=== PATIENT | female | born 1945 | race Caucasian/White ===

== ENCOUNTER 2023-02-03 16:14 | Inpatient (IN) | payer MEDICARE, OTHER, SELFPAY ==
[2023-02-03] VITALS (18 sets, daily range): BP systolic 112–173; BP diastolic 56–76; PULSE 77–88; RESP 15–27; TEMP 37.5–38.1; O2SAT 96–100; BMI 23.3; BMI 23.7
[2023-02-03] MEDS: SODIUM CHLORIDE 0.9% 1,000 ML 1000 ML IV (16:50)
--- NOTE | 2023-02-03 16:50 | DI.RAD.S_ITS ---
PROCEDURE: XR CHEST 1V INDICATIONS: suspected sepsis TECHNIQUE: One view of the chest was acquired. COMPARISON: None. FINDINGS: Surgical changes and devices: None. Lungs and pleura: Lungs are clear. No pleural effusions or pneumothorax. Mediastinum: Mediastinal contours appear normal. Heart size is normal. Bones and chest wall: No suspicious bony lesions. Overlying soft tissues appear unremarkable. IMPRESSION: No acute cardiopulmonary abnormalities or focal airspace disease. Dictated by: Esteban Burgos M.D. on 02/03/2023 at 17:57 Approved by: Esteban Burgos M.D. on 02/03/2023 at 17:59
[2023-02-03 16:56] LABS: Add Manual Diff / Slide Review NO; Basophils Absolute Auto 0 /uL (0-100); Basophils Percent Auto 0.4 % (0-2); Eosinophils Absolute Auto 100 /uL (0-450); Eosinophils Percent Auto 0.5 % (2-4); Hematocrit 37.3 % (36-46); Hemoglobin 13.3 g/dL (12.0-16.0); Lymphocytes Absolute Auto 1300 /uL (1100-4500); Mean Corpuscular HGB Conc 35.6 % (30-36); Monocytes Absolute Auto 1000 /uL (0-900); Monocytes Percent Auto 9.3 % (3-14); Neutrophils Absolute Auto 8500 /uL (1500-7000); Neutrophils Percent Auto 77.8 % (50-75); Platelet Count 172 X10^3/uL (150-400); Red Blood Cell Count 4.28 X10^6/uL (4.0-5.2); Red Cell Distribution Width 12.9 % (11.6-14.8)
[2023-02-03 17:01] LABS: Prothrombin Time 11.5 SECONDS (10.1-12.7)
[2023-02-03 17:03] LABS: PTT Partial Thromboplastin Tim 27 SECONDS (26-36)
[2023-02-03 17:11] LABS: Lactate (Lactic Acid) 1.2 mmol/L (0.7-2.1)
[2023-02-03 17:12] LABS: Alanine Aminotransferase 52 IU/L (<35); Albumin 3.8 g/dL (3.5-5.0); Albumin Globulin Ratio 1.2 (1.0-2.8); Alkaline Phosphatase 111 U/L (38-126); Aspartate Aminotransferase 56 IU/L (14-36); BUN Creatinine Ratio 24.6 (6-22); Blood Urea Nitrogen 17 mg/dL (7-17); Calcium 8.6 mg/dL (8.4-10.2); Carbon Dioxide 29 mmol/L (22-32); Chloride 100 mmol/L (98-107); Estimated Glomerular Filt Rate > 60 mL/min (>60); Globulin 3.2 g/dL (1.7-4.1); Glucose 119 mg/dL (80-110); HEMOLYSIS < 15 (0-50); Lipase 79 U/L (23-300); Potassium 3.9 mmol/L (3.4-5.1); Sodium 133 mmol/L (137-145)
[2023-02-03 17:29] LABS: Procalcitonin 0.68 ng/mL (<0.5)
[2023-02-03] MEDS: ACETAMINOPHEN 325 MG TABLET 975 MG PO (17:41)
--- NOTE | 2023-02-03 18:21 | DI.US.S_ITS ---
PROCEDURE: US PERIPH VENOUS LOW EXTREM LT INDICATIONS: PAIN REDNESS WARMTH NO INJURY TECHNIQUE: Real-time imaging, as well as color and pulse Doppler interrogation, were performed of the lower extremity deep veins from the inguinal ligament to the popliteal fossa, with documentation of the visualized calf veins. COMPARISON: None. FINDINGS: The common femoral, femoral, popliteal, and the visualized calf veins are normally compressible, and free of intraluminal thrombus. Color and pulse Doppler demonstrate normal phasic intraluminal flow. There is normal augmentation response to distal compression maneuver. A prominent left groin lymph node can be seen. Left calf soft tissue edema can be seen. IMPRESSION: No findings of lower extremity deep venous thrombosis. Dictated by: Reed Montoya M.D. on 02/03/2023 at 17:59 Approved by: Reed Montoya M.D. on 02/03/2023 at 17:59
--- NOTE | 2023-02-03 18:22 | ED_ITS ---
HPI - Extremity Problem General Chief complaint: Extremity Problem,Nontraumatic Stated complaint: DVT/Cellulitis Time Seen by Provider: 02/03/23 17:36 Source: patient and EMS Mode of arrival: EMS History of Present Illness HPI Narrative: 77-year-old female former smoker with no significant chronic medical history presents by air medical transport for evaluation of fever, shaking chills as well as a painful, red and swollen left lower extremity. She states that she had been in her normal state of health until Friday when she started feeling a bit under the weather and feverish. Over the course of the weekend she began to feel increasingly weak and noticed increasing pain and redness on her left lower leg which is extended up along her left medial thigh. She is had fever and shaking chills and some mild nausea. She denies runny nose, sore throat or cough. She denies any trauma or injury. No chest pain, no history of clot. Related Data Home Medications Medication Instructions Recorded Confirmed estradiol 10 mcg vaginal tablet 10 mcg vaginal 2XW 02/03/23 02/03/23 levothyroxine 50 mcg tablet 50 mcg PO DAILY 02/03/23 02/03/23 (Synthroid) Allergies Allergy/AdvReac Type Severity Reaction Status Date / Time amoxicillin Allergy Verified 02/03/23 22:51 Sulfa (Sulfonamide Allergy Verified 02/03/23 22:51 Antibiotics) Review of Systems Review of Systems Narrative: GENERAL: See HPI HEENT: Denies sinus pain, ear pain, sore throat, difficulty swallowing, dizziness. RESPIRATORY: Denies dyspnea, cough, wheezing, hemoptysis, sputum. CARDIOVASCULAR: Denies chest pain, palpitations, orthopnea, edema, GASTROINTESTINAL: Denies nausea, vomiting, abdominal pain, diarrhea, constipation, melena. : Denies dysuria, frequency, incontinence, hematuria, urinary retention. MUSCULOSKELETAL: See HPI SKIN: See HPI NEUROLOGIC: Denies weakness, headache, numbness, change in speech, confusion, seizures, incoordination. PSYCHIATRIC: No concerning psychosocial issues. 12 point review of systems is negative except for those stated above Patient History Medical History (Updated 02/04/23 @ 03:49 by Jose Parisi MD) Hypothyroidism Social History household members: spouse Smoking Status: Former smoker Smoking Status: Former smoker alcohol intake frequency: a few times a week Alcohol type: wine Substance Use Type: does not use Exam Narrative Exam Narrative: GENERAL: [77] year old patient appears stated age. Well-developed patient, in mild distress. HEAD: Atraumatic. Normocephalic. EYES: Pupils equal round and reactive. Extraocular motions intact. No scleral icterus. No injection or drainage. ENT: Nose without bleeding, purulent drainage. Throat without erythema, tonsillar hypertrophy or exudate. Airway patent. NECK: Trachea midline. Non tender CARDIOVASCULAR: Regular rate and rhythm without murmurs, gallops, or rubs. RESPIRATORY: Clear to auscultation. Breath sounds equal bilaterally. No wheezes, rales, or rhonchi. GASTROINTESTINAL: Abdomen soft, non-tender, nondistended. EXTREMITIES: No edema or joint tenderness. BACK: Nontender without deformity or crepitance. No flank tenderness. NEURO: AOx3. SKIN: Painful warm blanching rash, dark purple on left lower extremity, mainly on the anterior carrizales but spreads up along medial thigh. Patient also has pain on palpation of calf there is [id number] swelling, pulses intact Initial Vital Signs Initial Vital Signs: Vital Signs Temperature 100.6 F H 02/03/23 16:15 Pulse Rate 81 02/03/23 16:15 Respiratory Rate 18 02/03/23 16:15 Blood Pressure 173/76 H 02/03/23 16:15 Pulse Oximetry 100 02/03/23 16:15 Oxygen Delivery Method Room Air 02/03/23 16:15 Course Orders Ordered: Acetaminophen (Acetaminophen 325 Mg Tablet) 650 mg PO Q6H PRN PRN Reason: Fever/Mild Pain (1-3) Last Admin: 02/04/23 00:29 Dose: 650 mg Documented By: KALI Hydrocodone Bitart/Acetaminophen (Hydrocodone/Acet 5/325 Tablet) 1 tab PO Q4H PRN PRN Reason: Pain, Moderate (4-6) Al Hydrox/Mg Hydrox/Simethicone (Mag Hydrox/Alum/Simeth 30 Ml Udc) 30 ml PO Q6HR PRN PRN Reason: Dyspepsia Enoxaparin Sodium (Enoxaparin 40 Mg/0.4 Ml Syringe) 40 mg SUBCUT DAILY ROBERT Lactated Ringer's (Lactated Ringers) 1,000 mls @ 100 mls/hr IV CONT ROBERT Last Admin: 02/03/23 21:45 Dose: 100 mls/hr Documented By: KALI Vancomycin HCl (Vancomycin) 1,000 mg in 200 mls @ 200 mls/hr IV Q24H ROBERT Ibuprofen (Ibuprofen 600 Mg Tablet) 600 mg PO Q6H PRN PRN Reason: Fever/Mild Pain (1-3) Naloxone HCl (Naloxone 0.4 Mg/Ml Vial) 0.2 mg IV Q2MIN PRN PRN Reason: Opiate Reversal Ondansetron HCl (Ondansetron 4 Mg/2 Ml Inj) 4 mg IV NOW PRN PRN Reason: Nausea And Vomiting Ondansetron HCl (Ondansetron 4 Mg Odt) 4 mg SL NOW PRN PRN Reason: Nausea And Vomiting Ondansetron HCl (Ondansetron 4 Mg Odt) 4 mg PO Q8HR PRN PRN Reason: Nausea And Vomiting Ondansetron HCl (Ondansetron 4 Mg/2 Ml Inj) 4 mg IV Q8HR PRN PRN Reason: Nausea And Vomiting Last Admin: 02/04/23 03:09 Dose: 4 mg Documented By: KALI Oxycodone HCl (Oxycodone Ir 10 Mg Tablet) 5 mg PO Q3H PRN PRN Reason: Pain, Severe (7-10) Vancomycin HCl (Vancomycin Per Pharmacy) 1 request MISC NOW ONE Stop: 02/03/23 21:43 Discontinued Medications Acetaminophen (Acetaminophen 325 Mg Tablet) 975 mg PO NOW ONE Stop: 02/03/23 17:37 Last Admin: 02/03/23 17:41 Dose: 975 mg Documented By: ALVARO Sodium Chloride (Normal Saline 0.9%) 1,000 mls @ 1,000 mls/hr IV BOLUS ONE Stop: 02/03/23 17:49 Last Infusion: 02/03/23 19:06 Dose: 0 mls/hr Documented By: Admin: 02/03/23 16:50 Dose: 1,000 mls/hr Documented By: ALVARO Lactated Ringer's (Lactated Ringers) 2,000.34 mls @ 666.78 mls/hr 30 ml/kg infuse over 3 hr (2000.34 ml) IV NOW ONE Stop: 02/03/23 21:11 Last Admin: 02/03/23 19:35 Dose: 666.78 mls/hr Documented By: GC Vancomycin HCl/Dextrose (Vancomycin) 1,500 mg in 300 mls @ 200 mls/hr IV NOW ONE Stop: 02/03/23 19:50 Last Infusion: 02/03/23 20:42 Dose: 0 mls/hr Documented By: Admin: 02/03/23 19:12 Dose: 200 mls/hr Documented By: GC Ketorolac Tromethamine (Ketorolac 30 Mg/Ml Vial) 15 mg IV NOW ONE Stop: 02/03/23 18:22 Last Admin: 02/03/23 19:18 Dose: 15 mg Documented By: WILFREDO Vital Signs Vital signs: Vital Signs - 8 hr 02/03/23 21:00 02/03/23 21:00 Pulse Rate 78 Respiratory Rate 16 Blood Pressure 120/59 L Pulse Oximetry 96 MDM - Extremity (Nontraumatic) Lab Data 02/03/23 16:30 02/03/23 16:30 Labs: Lab Results 02/03/23 02/03/23 02/03/23 Range/Units 16:30 16:30 16:30 WBC 11.0 (4.5-11.0) X10^3/uL RBC 4.28 (4.0-5.2) X10^6/uL Hgb 13.3 (12.0-16.0) g/dL Hct 37.3 (36-46) % MCV 87.0 (80-100) fL MCH 31.0 (26-34) PG MCHC 35.6 (30-36) % RDW 12.9 (11.6-14.8) % Plt Count 172 (150-400) X10^3/uL Neut % (Auto) 77.8 H (50-75) % Lymph % (Auto) 12.0 L (25-40) % [place] % (Auto) 9.3 (3-14) % Eos % (Auto) 0.5 L (2-4) % Baso % (Auto) 0.4 (0-2) % Neut # (Auto) 8500 H (3656-8055) /uL Lymph # (Auto) 1300 (2799-9321) /uL [place] # (Auto) 1000 H (0-900) /uL Eos # (Auto) 100 (0-450) /uL Baso # (Auto) 0 (0-100) /uL PT 11.5 (10.1-12.7) SECONDS INR 1.0 (0.9-1.3) APTT 27 (26-36) SECONDS Sodium 133 L (137-145) mmol/L Potassium 3.9 (3.4-5.1) mmol/L Chloride 100 (98-107) mmol/L Carbon Dioxide 29 (22-32) mmol/L BUN 17 (7-17) mg/dL Creatinine 0.69 (0.52-1.04) mg/dL Estimated GFR > 60 (>60) mL/min BUN/Creatinine Ratio 24.6 H (6-22) Glucose 119 H (80-110) mg/dL Lactate (0.7-2.1) mmol/L Calcium 8.6 (8.4-10.2) mg/dL Total Bilirubin 1.0 (0.2-1.3) mg/dL AST 56 H (14-36) IU/L ALT 52 H (<35) IU/L Alkaline Phosphatase 111 (38-126) U/L Total Protein 7.0 (6.3-8.2) g/dL Albumin 3.8 (3.5-5.0) g/dL Globulin 3.2 (1.7-4.1) g/dL Albumin/Globulin Ratio 1.2 (1.0-2.8) Lipase 79 (23-300) U/L Procalcitonin 0.68 H (<0.5) ng/mL Urine RBC (0-5/HPF) Urine WBC (0-5/HPF) Ur Squamous Epith Cells (0-5/HPF) Amorphous Sediment Urine Bacteria (None) 02/03/23 02/03/23 Range/Units 16:30 18:35 WBC (4.5-11.0) X10^3/uL RBC (4.0-5.2) X10^6/uL Hgb (12.0-16.0) g/dL Hct (36-46) % MCV (80-100) fL MCH (26-34) PG MCHC (30-36) % RDW (11.6-14.8) % Plt Count (150-400) X10^3/uL Neut % (Auto) (50-75) % Lymph % (Auto) (25-40) % [place] % (Auto) (3-14) % Eos % (Auto) (2-4) % Baso % (Auto) (0-2) % Neut # (Auto) (7439-8267) /uL Lymph # (Auto) (2260-2960) /uL [place] # (Auto) (0-900) /uL Eos # (Auto) (0-450) /uL Baso # (Auto) (0-100) /uL PT (10.1-12.7) SECONDS INR (0.9-1.3) APTT (26-36) SECONDS Sodium (137-145) mmol/L Potassium (3.4-5.1) mmol/L Chloride (98-107) mmol/L Carbon Dioxide (22-32) mmol/L BUN (7-17) mg/dL Creatinine (0.52-1.04) mg/dL Estimated GFR (>60) mL/min BUN/Creatinine Ratio (6-22) Glucose (80-110) mg/dL Lactate 1.2 (0.7-2.1) mmol/L Calcium (8.4-10.2) mg/dL Total Bilirubin (0.2-1.3) mg/dL AST (14-36) IU/L ALT (<35) IU/L Alkaline Phosphatase (38-126) U/L Total Protein (6.3-8.2) g/dL Albumin (3.5-5.0) g/dL Globulin (1.7-4.1) g/dL Albumin/Globulin Ratio (1.0-2.8) Lipase (23-300) U/L Procalcitonin (<0.5) ng/mL Urine RBC 0-1/hpf (0-5/HPF) Urine WBC 1-5/hpf (0-5/HPF) Ur Squamous Epith Cells 0-1 /hpf (0-5/HPF) Amorphous Sediment 3+ Urine Bacteria Few (2-10) H (None) Urine Dip Bedside Urine Glucose Negative Bedside Urine Bilirubin - Negative Bedside Urine Ketone - Negative Urine Specific [place] 1.015 Bedside Urine Occult Blood - Negative Bedside Urine pH 6.5 Bedside Urine Protein +/- 15 Bedside Urine Urobilinogen - Negative Bedside Urine Nitrite - Negative Bedside Urine Leukocytes - Negative Esterase MDM Narrative Medical decision making narrative: 77-year-old female with rapidly worsening left lower extremity pain, redness and swelling initially just on her carrizales and now although up to her mid thigh. She is had fever and shaking chills, on arrival met all sepsis markers, given IV fluids vancomycin and antipyretics. Ultrasound obtained to rule out DVT. Patient requires hospitalization for further treatment and stabilization of her condition. Discussed with on-call hospitalist (Dr. Anderson). He is happy to accept on his service Discharge Plan Departure Patient Disposition: Admitted As Inpatient Clinical Impression: Sepsis Cellulitis Qualifiers: Site of cellulitis: extremity Site of cellulitis of extremity: lower extremity Laterality: left Qualified Code(s): L03.116 - Cellulitis of left lower limb Admit Date/Time: 02/03/23 21:10 Admit Provider: Jose Parisi
[2023-02-03] MEDS: VANCOMYCIN 1,500 MG/300 ML PIGGYBACK 200 MG IV (19:12)
[2023-02-03] MEDS: KETOROLAC 30 MG/ML VIAL 15 MG IV (19:18)
[2023-02-03 19:26] LABS: Amorphous Sediment Urine 3+; Bacteria Urine Few (2-10); RBC Urine 0-1/HPF (0-5/HPF); Squamous Epithelial Cell Urine 0-1 /HPF (0-5/HPF); WBC Urine 1-5/HPF (0-5/HPF)
[2023-02-03] MEDS: LACTATED RINGERS 666.78 ML IV (19:35)
[2023-02-03] MEDS: LACTATED RINGERS 1,000 ML 100 ML IV (21:45)
--- NOTE | 2023-02-03 21:47 | PM.HP.1 ---
History of Present Illness History of Present Illness Date Patient Seen: 02/03/23 Chief complaint: DVT/Cellulitis Narrative: 77 y/o with PMH of hypothyroidism, presented to ED with LLE cellulitis and sepsis. She developed first symptoms on Friday, she was moving some furniture and noticed Lt lower anterior leg redness. On Friday it was getting worse and on presentation to ED erythema extended up and down, with chills and fever.She could.ve injure the leg, in retrospect, but she denies seeing any skin cuts or wounds. COUNT INCLUDES THE [facility] Medical History (Updated 02/04/23 @ 03:49 by Jose Parisi MD) Hypothyroidism Social History household members: spouse Smoking Status: Former smoker Meds Home Medications and Allergies Home Medications Medication Instructions Recorded Confirmed Type estradiol 10 mcg vaginal tablet 10 mcg vaginal 2XW 02/03/23 02/03/23 History levothyroxine 50 mcg tablet 50 mcg PO DAILY 02/03/23 02/03/23 History (Synthroid) Allergies Allergy/AdvReac Type Severity Reaction Status Date / Time amoxicillin Allergy Verified 02/03/23 22:51 Sulfa (Sulfonamide Allergy Verified 02/03/23 22:51 Antibiotics) Review of Systems Constitutional Comments: fever, chills Cardiovascular Comments: w/o chest pain or palpitations Respiratory Comments: w/o shortness of breath Gastrointestinal Comments: w/o complaints Genitourinary Comments: w/o dysuria Musculoskeletal Comments: LLE swelling, redness, tenderness Exam Vital Signs (past 8 hours): - 02/03/23 16:15 02/03/23 16:56 02/03/23 16:19 Temperature 100.6 F H 100.6 F H Pulse Rate 81 Respiratory Rate 18 Blood Pressure 173/76 H 173/76 H Pulse Oximetry 100 Oxygen Delivery Method Room Air 02/03/23 16:19 02/03/23 16:30 02/03/23 16:30 Temperature Pulse Rate 86 80 Respiratory Rate 22 Blood Pressure 148/67 H Pulse Oximetry 98 100 Oxygen Delivery Method 02/03/23 17:00 02/03/23 17:00 02/03/23 17:30 Temperature Pulse Rate 78 Respiratory Rate 27 H Blood Pressure 146/65 H 140/65 Pulse Oximetry 99 Oxygen Delivery Method 02/03/23 17:30 02/03/23 17:41 02/03/23 18:00 Temperature 100.6 F H Pulse Rate 88 Respiratory Rate 26 H Blood Pressure 132/60 Pulse Oximetry 97 Oxygen Delivery Method 02/03/23 18:00 02/03/23 19:02 02/03/23 19:07 Temperature 99.8 F H 99.8 F H Pulse Rate 79 Respiratory Rate 21 Blood Pressure Pulse Oximetry 98 Oxygen Delivery Method 02/03/23 19:03 02/03/23 19:04 02/03/23 19:04 Temperature Pulse Rate 81 79 Respiratory Rate 15 Blood Pressure 112/57 L Pulse Oximetry 98 98 Oxygen Delivery Method 02/03/23 19:30 02/03/23 19:30 02/03/23 20:00 Temperature Pulse Rate 78 Respiratory Rate 17 Blood Pressure 114/56 L 114/57 L Pulse Oximetry 97 Oxygen Delivery Method 02/03/23 20:00 02/03/23 20:30 02/03/23 20:30 Temperature Pulse Rate 78 77 Respiratory Rate 16 20 Blood Pressure 117/56 L Pulse Oximetry 97 97 Oxygen Delivery Method 02/03/23 21:00 02/03/23 21:00 02/03/23 21:33 Temperature 99.5 F Pulse Rate 78 Respiratory Rate 16 Blood Pressure 120/59 L Pulse Oximetry 96 Oxygen Delivery Method Oxygen Delivery Method Room Air Const Other: in no distress, laying in bed Resp Other: normal respiratory effort Cardio Other: RRR Skin Other: no rashes Neuro Other: w/o deficits Extrem Other: swollen and eryhthematous LLE Psych Other: appropriate mood Objective Labs 02/03/23 16:30 02/03/23 16:30 Labs: Laboratory Results - last 24 hr 02/03/23 02/03/23 02/03/23 16:30 16:30 16:30 WBC 11.0 RBC 4.28 Hgb 13.3 Hct 37.3 MCV 87.0 MCH 31.0 MCHC 35.6 RDW 12.9 Plt Count 172 Neut % (Auto) 77.8 H Lymph % (Auto) 12.0 L [place] % (Auto) 9.3 Eos % (Auto) 0.5 L Baso % (Auto) 0.4 Neut # (Auto) 8500 H Lymph # (Auto) 1300 [place] # (Auto) 1000 H Eos # (Auto) 100 Baso # (Auto) 0 PT 11.5 INR 1.0 APTT 27 Sodium 133 L Potassium 3.9 Chloride 100 Carbon Dioxide 29 BUN 17 Creatinine 0.69 Estimated GFR > 60 BUN/Creatinine Ratio 24.6 H Glucose 119 H Lactate Calcium 8.6 Total Bilirubin 1.0 AST 56 H ALT 52 H Alkaline Phosphatase 111 Total Protein 7.0 Albumin 3.8 Globulin 3.2 Albumin/Globulin Ratio 1.2 Lipase 79 Procalcitonin 0.68 H Urine RBC Urine WBC Ur Squamous Epith Cells Amorphous Sediment Urine Bacteria 02/03/23 02/03/23 16:30 18:35 WBC RBC Hgb Hct MCV MCH MCHC RDW Plt Count Neut % (Auto) Lymph % (Auto) [place] % (Auto) Eos % (Auto) Baso % (Auto) Neut # (Auto) Lymph # (Auto) [place] # (Auto) Eos # (Auto) Baso # (Auto) PT INR APTT Sodium Potassium Chloride Carbon Dioxide BUN Creatinine Estimated GFR BUN/Creatinine Ratio Glucose Lactate 1.2 Calcium Total Bilirubin AST ALT Alkaline Phosphatase Total Protein Albumin Globulin Albumin/Globulin Ratio Lipase Procalcitonin Urine RBC 0-1/hpf Urine WBC 1-5/hpf Ur Squamous Epith Cells 0-1 /hpf Amorphous Sediment 3+ Urine Bacteria Few (2-10) H Assessment & Plan Assessment and plan (1) Cellulitis of left lower extremity: Status: Acute (2) Sepsis: Status: Acute (3) Hypothyroidism: Status: Acute (4) AMANDA (acute kidney injury): Status: Acute Plan admitted for IVFs and iv abx Assessment & Plan narrative: 1. LLE Acute Cellulitis / Sepsis / AMANDA - cultures pending - empiric Vancomycin, IVFs, pain management 2. Hypothyroidism - levothyroxine DVT prophylaxis - Lovenox
[2023-02-04] VITALS (11 sets, daily range): BP systolic 98–119; BP diastolic 36–47; PULSE 61–80; RESP 15–18; TEMP 36.2–39.2; O2SAT 98–100
[2023-02-04] MEDS: ACETAMINOPHEN 325 MG TABLET 650 MG PO ×2 (00:29→16:17)
[2023-02-04] MEDS: ONDANSETRON 4 MG/2 ML INJ IV ×2 (03:09→07:56)
[2023-02-04] MEDS: LEVOTHYROXINE 50 MCG TABLET PO (05:52)
[2023-02-04 07:27] LABS: Add Manual Diff / Slide Review NO; Basophils Absolute Auto 0 /uL (0-100); Basophils Percent Auto 0.3 % (0-2); Eosinophils Absolute Auto 0 /uL (0-450); Eosinophils Percent Auto 0.4 % (2-4); Hematocrit 32.2 % (36-46); Hemoglobin 11.4 g/dL (12.0-16.0); Lymphocytes Absolute Auto 1300 /uL (1100-4500); Lymphocytes Percent Auto 12.2 % (25-40); Mean Corpuscular HGB Conc 35.5 % (30-36); Mean Corpuscular Volume 87.1 fL (80-100); Monocytes Absolute Auto 1100 /uL (0-900); Monocytes Percent Auto 9.7 % (3-14); Neutrophils Absolute Auto 8500 /uL (1500-7000); Neutrophils Percent Auto 77.4 % (50-75); Platelet Count 129 X10^3/uL (150-400); Red Blood Cell Count 3.69 X10^6/uL (4.0-5.2); White Blood Cell Count 11.1 X10^3/uL (4.5-11.0)
[2023-02-04 07:39] LABS: BUN Creatinine Ratio 21.3 (6-22); Blood Urea Nitrogen 13 mg/dL (7-17); Calcium 7.9 mg/dL (8.4-10.2); Carbon Dioxide 24 mmol/L (22-32); Chloride 106 mmol/L (98-107); Estimated Glomerular Filt Rate > 60 mL/min (>60); Glucose 120 mg/dL (80-110); HEMOLYSIS < 15 (0-50); Potassium 3.8 mmol/L (3.4-5.1); Sodium 134 mmol/L (137-145)
[2023-02-04] MEDS: VANCOMYCIN 1,000 MG/200 ML PIGGYBACK 200 MG IV (07:55)
[2023-02-04] MEDS: ENOXAPARIN 40 MG/0.4 ML SYRINGE SUBCUT (08:17)
--- NOTE | 2023-02-04 14:45 | P.PN_ITS ---
Subjective Subjective Interval history: 77 F admitted with cellulitis. Mild improvement today but continues to have swelling, warmth and pain with difficulty ambulating. Exam Vital Signs (past 8 hours): - 02/04/23 07:00 02/04/23 11:00 Temperature 98.9 F 99.4 F Pulse Rate 74 74 Respiratory Rate 15 18 Blood Pressure 98/36 L 119/38 L Pulse Oximetry 100 100 Oxygen Flow Rate 0 0 Oxygen Delivery Method Room Air Oxygen Flow Rate 0 Narrative Exam Narrative: Gen: No acute distress Ext: no edema bilaterally but L leg with erythema warmth and tenderness, slight improvement from area of demarcation. CV: RRR, peripheral pulses +2 (DP) in b/l LE. PULM: no respiratory distress. Objective Labs 02/04/23 07:16 02/04/23 07:16 Labs: Laboratory Results - last 24 hr 02/03/23 02/03/23 02/03/23 16:30 16:30 16:30 WBC 11.0 RBC 4.28 Hgb 13.3 Hct 37.3 MCV 87.0 MCH 31.0 MCHC 35.6 RDW 12.9 Plt Count 172 Neut % (Auto) 77.8 H Lymph % (Auto) 12.0 L [place] % (Auto) 9.3 Eos % (Auto) 0.5 L Baso % (Auto) 0.4 Neut # (Auto) 8500 H Lymph # (Auto) 1300 [place] # (Auto) 1000 H Eos # (Auto) 100 Baso # (Auto) 0 PT 11.5 INR 1.0 APTT 27 Sodium 133 L Potassium 3.9 Chloride 100 Carbon Dioxide 29 BUN 17 Creatinine 0.69 Estimated GFR > 60 BUN/Creatinine Ratio 24.6 H Glucose 119 H Lactate Calcium 8.6 Total Bilirubin 1.0 AST 56 H ALT 52 H Alkaline Phosphatase 111 Total Protein 7.0 Albumin 3.8 Globulin 3.2 Albumin/Globulin Ratio 1.2 Lipase 79 Procalcitonin 0.68 H Urine RBC Urine WBC Ur Squamous Epith Cells Amorphous Sediment Urine Bacteria 02/03/23 02/03/23 02/04/23 16:30 18:35 07:16 WBC 11.1 H RBC 3.69 L Hgb 11.4 L Hct 32.2 L MCV 87.1 MCH 31.0 MCHC 35.5 RDW 13.0 Plt Count 129 L Neut % (Auto) 77.4 H Lymph % (Auto) 12.2 L [place] % (Auto) 9.7 Eos % (Auto) 0.4 L Baso % (Auto) 0.3 Neut # (Auto) 8500 H Lymph # (Auto) 1300 [place] # (Auto) 1100 H Eos # (Auto) 0 Baso # (Auto) 0 PT INR APTT Sodium Potassium Chloride Carbon Dioxide BUN Creatinine Estimated GFR BUN/Creatinine Ratio Glucose Lactate 1.2 Calcium Total Bilirubin AST ALT Alkaline Phosphatase Total Protein Albumin Globulin Albumin/Globulin Ratio Lipase Procalcitonin Urine RBC 0-1/hpf Urine WBC 1-5/hpf Ur Squamous Epith Cells 0-1 /hpf Amorphous Sediment 3+ Urine Bacteria Few (2-10) H 02/04/23 07:16 WBC RBC Hgb Hct MCV MCH MCHC RDW Plt Count Neut % (Auto) Lymph % (Auto) [place] % (Auto) Eos % (Auto) Baso % (Auto) Neut # (Auto) Lymph # (Auto) [place] # (Auto) Eos # (Auto) Baso # (Auto) PT INR APTT Sodium 134 L Potassium 3.8 Chloride 106 Carbon Dioxide 24 BUN 13 Creatinine 0.61 Estimated GFR > 60 BUN/Creatinine Ratio 21.3 Glucose 120 H Lactate Calcium 7.9 L Total Bilirubin AST ALT Alkaline Phosphatase Total Protein Albumin Globulin Albumin/Globulin Ratio Lipase Procalcitonin Urine RBC Urine WBC Ur Squamous Epith Cells Amorphous Sediment Urine Bacteria [facility] Medical History (Updated 02/04/23 @ 12:44 by Jennifer Shafer) Hypothyroidism Social History (System 02/04/23 @ 12:44 by Jennifer Shafer) household members: spouse Smoking Status: Former smoker Assessment & Plan Assessment & Plan narrative: 1. LLE Acute Cellulitis - start ceftriaxone in addition to vanco per pharmacy for now - check MRSA swab, if negative can likely discontinue vanco - pain control - DVT study negative 2. Hypothyroidism - levothyroxine 3. Thrombocytopenia, likely related to infectious process, continue to follow. 4. Hyponatremia, mild - Na 134, continue to follow. Sepsis ruled out, SOFA score 1 for thrombocytopenia. DVT prophylaxis - Lovenox Code: Full, surrogate patient declines to select at this time. Quality VTE Deep Vein Thrombosis/Pulmonary Embolism Present on Admission: No
--- NOTE | 2023-02-04 15:41 | CM.DANOTE ---
Discharge Planning/Care Management CM Discharge Assessment Start: 02/04/23 15:31 Freq: Status: Active Protocol: Document 02/04/23 15:31 CHANG (Rec: 02/04/23 15:41 CHANG [id number]) Discharge Planning Assessment Assigned Hat Marker MAXIMO Dhillon DPOA/Assigned Designee Name Michael Coombs, friend Contact Information [phone] Advance Directives? No History Provided By Patient,Medical Record Prior Living Arrangements House Household Members none Type of transporation used prior to Drives own vehicle admit Independent with ADL's Yes Is patient alert and oriented? 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) with fever, chills and painful , swollen right LE. Patient admitted for management of LLE cellulitis. Met w/patient to introduce self and role. Patient is indp and active at baseline, says she is estranged from her daughter and has listed friend Michael as her NOK. Patient anticipates discharging home w /friend back to [facility] and currently denies needs from this CM team. Patient appreciative for the visit
[2023-02-04] MEDS: cefTRIAXone 1,000 MG in SODIUM CHLORIDE 0.9% 100 ML 200 MG IV (16:05)
[2023-02-04 18:07] LABS: MRSA (Nasal) PCR Not Detected (Not Detect)
[2023-02-05] MEDS: HYDROCODONE/ACET 5/325 TABLET 1 TAB PO (02:15)
[2023-02-05] MEDS: ONDANSETRON 4 MG ODT PO (02:16)
[2023-02-05] MEDS: LEVOTHYROXINE 50 MCG TABLET PO (05:26)
[2023-02-05 05:50] LABS: Add Manual Diff / Slide Review NO; Basophils Absolute Auto 0 /uL (0-100); Basophils Percent Auto 0.3 % (0-2); Eosinophils Absolute Auto 100 /uL (0-450); Eosinophils Percent Auto 1.1 % (2-4); Hematocrit 30.3 % (36-46); Hemoglobin 10.8 g/dL (12.0-16.0); Lymphocytes Absolute Auto 1600 /uL (1100-4500); Lymphocytes Percent Auto 14.9 % (25-40); Mean Corpuscular HGB Conc 35.8 % (30-36); Mean Corpuscular Hemoglobin 31.1 PG (26-34); Mean Corpuscular Volume 86.8 fL (80-100); Monocytes Absolute Auto 1000 /uL (0-900); Monocytes Percent Auto 9.2 % (3-14); Neutrophils Absolute Auto 8100 /uL (1500-7000); Neutrophils Percent Auto 74.5 % (50-75); Platelet Count 120 X10^3/uL (150-400); Red Blood Cell Count 3.49 X10^6/uL (4.0-5.2); Red Cell Distribution Width 12.8 % (11.6-14.8); White Blood Cell Count 10.9 X10^3/uL (4.5-11.0)
[2023-02-05 06:03] LABS: BUN Creatinine Ratio 21.2 (6-22); Blood Urea Nitrogen 14 mg/dL (7-17); Calcium 8.1 mg/dL (8.4-10.2); Carbon Dioxide 26 mmol/L (22-32); Chloride 105 mmol/L (98-107); Estimated Glomerular Filt Rate > 60 mL/min (>60); Glucose 102 mg/dL (80-110); HEMOLYSIS < 15 (0-50); Potassium 3.8 mmol/L (3.4-5.1); Sodium 135 mmol/L (137-145)
[2023-02-05 06:40] VITALS: BP 102/47; PULSE 64; RESP 16; TEMP 36.2; O2SAT 98
[2023-02-05] MEDS: ENOXAPARIN 40 MG/0.4 ML SYRINGE SUBCUT (09:24)
[2023-02-05 09:31] VITALS: BP 125/81; PULSE 64; RESP 10; TEMP 36.4; O2SAT 99
[2023-02-05] MEDS: ACETAMINOPHEN 325 MG TABLET 650 MG PO ×2 (11:48→21:47)
[2023-02-05] MEDS: cefTRIAXone 1,000 MG in SODIUM CHLORIDE 0.9% 100 ML 200 MG IV (14:54)
--- NOTE | 2023-02-05 17:23 | P.PN_ITS ---
Subjective Subjective Interval history: 77-year-old female withHypothyroidism who was admitted with left lower extremity cellulitis and concerns for sepsis. Patient reports she continues to have very significant pain to the left lower extremity. She has had significant difficulty even getting out of the bed to use the bathroom due to pain. She also has significant edema to the left lower extremity compared to the right, which is new for her. she notes on admission there was an area that appeared pink in the left medial thigh, but now notes that has spread and extends from the popliteal area up the medial thigh to the groin. Exam Vital Signs (past 8 hours): - 02/05/23 09:31 Temperature 97.6 F Pulse Rate 64 Respiratory Rate 10 L Blood Pressure 125/81 Pulse Oximetry 99 Oxygen Delivery Method Room Air Oxygen Flow Rate 0 Narrative Exam Narrative: GEN: elderly female, uncomfortable appearing,Alert and oriented x 3 HEENT:NC, Face symmetric CHEST: Respiratory excursions symmetric, CTAB CV: RRR, no M/R/G ABD: Soft, NT/ND, BT present in all 4 quadrants, no organomegaly or masses EXTR: warm, well perfused, no C/C/E noted to the right lower extremity, left lower extremity reveals 2+ edema, nonpitting, the entirety of the leg is very tender to even mild palpation, significant warmth to the pretibial area and calf, as well as up the medial thigh, erythema is patchy in the calf and pretibial area but there is evidence of lymphangitic spread up the medial thigh SKIN: warm and dry, no rash NEURO: Alert and oriented x 3, nonfocal Objective Labs 02/05/23 05:05 02/05/23 05:05 Labs: Laboratory Results - last 24 hr 02/04/23 02/05/23 02/05/23 15:51 05:05 05:05 WBC 10.9 RBC 3.49 L Hgb 10.8 L Hct 30.3 L MCV 86.8 MCH 31.1 MCHC 35.8 RDW 12.8 Plt Count 120 L Neut % (Auto) 74.5 Lymph % (Auto) 14.9 L [place] % (Auto) 9.2 Eos % (Auto) 1.1 L Baso % (Auto) 0.3 Neut # (Auto) 8100 H Lymph # (Auto) 1600 [place] # (Auto) 1000 H Eos # (Auto) 100 Baso # (Auto) 0 Sodium 135 L Potassium 3.8 Chloride 105 Carbon Dioxide 26 BUN 14 Creatinine 0.66 Estimated GFR > 60 BUN/Creatinine Ratio 21.2 Glucose 102 Calcium 8.1 L Magnesium 2.0 Nasal Screen MRSA (PCR) Not detected [facility] Medical History (Updated 02/04/23 @ 12:44 by Jennifer Shafer) Hypothyroidism Social History (System 02/04/23 @ 12:44 by Jennifer Shafer) household members: none Smoking Status: Former smoker Assessment & Plan Assessment & Plan narrative: 1. Left lower extremity cellulitis pain, swelling, and infection are causing difficulties withThe patient accomplishing her ADLs. She is having difficulty even getting out of the bed. MRSA swab was negative. Will discontinue vancomycin. Continue ceftriaxone. Patient will likely need an additional 24-48 hours in the hospital. Patient continued to spike fevers yesterday with a T-max of 102.5?. She has been afebrile today. 2. Leukocytosis white blood cell count was up to 11.1 yesterday It is improved today at 10.9. 3. Normocytic anemia hemoglobin was 13.3 on admission. It is down to 10.8 today. Suspect this is hemodilution. No evidence of bleeding. 4. thrombocytopenia platelet count was normal on admission at 172. It was 129 yesterday and is down again to 120 today. Suspect this is infection related. 5. Hypothyroidism continue levothyroxine 6. Postmenopausal state patient receives vaginal estrogen 2 days weekly. 7. glaucoma continue latanoprost code status full prophylaxis on Lovenox disposition pending Quality VTE Deep Vein Thrombosis/Pulmonary Embolism Present on Admission: No
[2023-02-05 20:20] VITALS: BP 140/61; PULSE 76; RESP 16; TEMP 37.1; O2SAT 98
[2023-02-05] MEDS: IBUPROFEN 600 MG TABLET PO (21:48)
[2023-02-06 05:17] LABS: Add Manual Diff / Slide Review NO; Basophils Absolute Auto 0 /uL (0-100); Basophils Percent Auto 0.5 % (0-2); Eosinophils Absolute Auto 300 /uL (0-450); Eosinophils Percent Auto 2.9 % (2-4); Hematocrit 31.4 % (36-46); Hemoglobin 11.3 g/dL (12.0-16.0); Lymphocytes Absolute Auto 2000 /uL (1100-4500); Lymphocytes Percent Auto 21.4 % (25-40); Mean Corpuscular Hemoglobin 31.1 PG (26-34); Mean Corpuscular Volume 86.4 fL (80-100); Monocytes Absolute Auto 700 /uL (0-900); Neutrophils Absolute Auto 6200 /uL (1500-7000); Neutrophils Percent Auto 67.2 % (50-75); Platelet Count 145 X10^3/uL (150-400); Red Blood Cell Count 3.63 X10^6/uL (4.0-5.2); White Blood Cell Count 9.3 X10^3/uL (4.5-11.0)
[2023-02-06 05:36] LABS: BUN Creatinine Ratio 24.6 (6-22); Blood Urea Nitrogen 17 mg/dL (7-17); Calcium 8.3 mg/dL (8.4-10.2); Carbon Dioxide 30 mmol/L (22-32); Chloride 107 mmol/L (98-107); Estimated Glomerular Filt Rate > 60 mL/min (>60); Glucose 109 mg/dL (80-110); HEMOLYSIS < 15 (0-50); Sodium 137 mmol/L (137-145)
[2023-02-06] MEDS: ACETAMINOPHEN 325 MG TABLET 650 MG PO ×2 (06:13→20:39)
[2023-02-06] MEDS: LEVOTHYROXINE 50 MCG TABLET PO (06:13)
[2023-02-06] MEDS: IBUPROFEN 600 MG TABLET PO ×2 (06:13→20:40)
[2023-02-06 08:00] VITALS: BP 118/49; PULSE 57; RESP 16; TEMP 36.1; O2SAT 99
[2023-02-06] MEDS: ENOXAPARIN 40 MG/0.4 ML SYRINGE SUBCUT (08:31)
[2023-02-06] MEDS: cefTRIAXone 1,000 MG in SODIUM CHLORIDE 0.9% 100 ML 200 MG IV (15:38)
--- NOTE | 2023-02-06 15:43 | P.PN_ITS ---
Subjective Subjective Interval history: 77-year-old female withHypothyroidism who was admitted with left lower extremity cellulitis and concerns for sepsis. Patient reports she continues to have very significant pain to the left lower extremity, though it does seem to be improving just slightly today compared to yesterday. Exam Vital Signs (past 8 hours): - 02/06/23 08:00 Temperature 97 F L Pulse Rate 57 L Respiratory Rate 16 Blood Pressure 118/49 L Pulse Oximetry 99 Oxygen Flow Rate 0 Oxygen Delivery Method Room Air Oxygen Flow Rate 0 Narrative Exam Narrative: Gen: No acute distress Ext: no edema bilaterally but L leg with erythema warmth and tenderness, improvement in warmth and tenderness but not erythematous spread today. CV: RRR, peripheral pulses +2 (DP) in b/l LE. PULM: no respiratory distress. Objective Labs 02/06/23 05:00 02/06/23 05:00 Labs: Laboratory Results - last 24 hr 02/06/23 02/06/23 05:00 05:00 WBC 9.3 RBC 3.63 L Hgb 11.3 L Hct 31.4 L MCV 86.4 MCH 31.1 MCHC 36.0 RDW 13.0 Plt Count 145 L Neut % (Auto) 67.2 Lymph % (Auto) 21.4 L [place] % (Auto) 8.0 Eos % (Auto) 2.9 Baso % (Auto) 0.5 Neut # (Auto) 6200 Lymph # (Auto) 2000 [place] # (Auto) 700 Eos # (Auto) 300 Baso # (Auto) 0 Sodium 137 Potassium 4.0 Chloride 107 Carbon Dioxide 30 BUN 17 Creatinine 0.69 Estimated GFR > 60 BUN/Creatinine Ratio 24.6 H Glucose 109 Calcium 8.3 L Magnesium 2.0 [facility] Medical History (Updated 02/04/23 @ 12:44 by Jennifer Shafer) Hypothyroidism Social History (System 02/04/23 @ 12:44 by Jennifer Shafer) household members: none Smoking Status: Former smoker Assessment & Plan Assessment & Plan narrative: 1. LLE Acute Cellulitis - was on vanco, discontinued with negative MRSA swab. Continue ceftriaxone. - continues to impact ADLs and mobility, hopeful for discharge home given some improvement in pain today. 2. Hypothyroidism - continue levothyroxine 3. Thrombocytopenia, likely related to infectious process, continue to follow. 4. Hyponatremia, mild, resolved Sepsis ruled out, SOFA score 1 for thrombocytopenia. DVT prophylaxis - Lovenox Code: Full, surrogate patient declines to select at this time. Quality VTE Deep Vein Thrombosis/Pulmonary Embolism Present on Admission: No
[2023-02-06 20:00] VITALS: BP 124/74; PULSE 75; RESP 18; TEMP 36.4; O2SAT 98
[2023-02-06] MEDS: LATANOPROST 0.005% OPHTH 2.5 ML 1 DROPS EYE-BOTH (20:40)
[2023-02-06] MEDS: HYDROCODONE/ACET 5/325 TABLET 1 TAB PO (20:40)
[2023-02-06] MEDS: OXYCODONE IR 5 MG TABLET PO (22:20)
[2023-02-07] MEDS: OXYCODONE IR 5 MG TABLET PO ×2 (01:28→05:48)
[2023-02-07 05:23] LABS: Add Manual Diff / Slide Review NO; Basophils Absolute Auto 0 /uL (0-100); Basophils Percent Auto 0.5 % (0-2); Eosinophils Absolute Auto 300 /uL (0-450); Eosinophils Percent Auto 4.2 % (2-4); Hematocrit 32.5 % (36-46); Hemoglobin 11.5 g/dL (12.0-16.0); Lymphocytes Absolute Auto 2400 /uL (1100-4500); Lymphocytes Percent Auto 28.9 % (25-40); Mean Corpuscular HGB Conc 35.4 % (30-36); Mean Corpuscular Hemoglobin 30.7 PG (26-34); Mean Corpuscular Volume 86.7 fL (80-100); Monocytes Absolute Auto 600 /uL (0-900); Monocytes Percent Auto 7.5 % (3-14); Neutrophils Absolute Auto 4800 /uL (1500-7000); Neutrophils Percent Auto 58.9 % (50-75); Platelet Count 196 X10^3/uL (150-400); Red Blood Cell Count 3.75 X10^6/uL (4.0-5.2); White Blood Cell Count 8.2 X10^3/uL (4.5-11.0)
[2023-02-07 05:36] LABS: BUN Creatinine Ratio 23.2 (6-22); Blood Urea Nitrogen 16 mg/dL (7-17); Calcium 8.3 mg/dL (8.4-10.2); Carbon Dioxide 27 mmol/L (22-32); Chloride 105 mmol/L (98-107); Estimated Glomerular Filt Rate > 60 mL/min (>60); Glucose 100 mg/dL (80-110); HEMOLYSIS < 15 (0-50); Potassium 4.1 mmol/L (3.4-5.1); Sodium 136 mmol/L (137-145)
[2023-02-07] MEDS: LEVOTHYROXINE 50 MCG TABLET PO (05:48)
[2023-02-07] MEDS: IBUPROFEN 600 MG TABLET PO (05:48)
[2023-02-07] MEDS: ACETAMINOPHEN 325 MG TABLET 650 MG PO ×2 (05:48→11:14)
[2023-02-07 08:50] VITALS: BP 111/38; PULSE 62; RESP 17; TEMP 35.7; O2SAT 98
--- NOTE | 2023-02-07 09:14 | PM.DS.1 ---
History of Present Illness History of Present Illness Date Patient Seen: 02/07/23 Time Patient Seen: 09:14 Chief complaint: DVT/Cellulitis Narrative: Per admitting provider, 77 y/o with PMH of hypothyroidism, presented to ED with LLE cellulitis and sepsis. She developed first symptoms on Friday, she was moving some furniture and noticed Lt lower anterior leg redness. On Friday it was getting worse and on presentation to ED erythema extended up and down, with chills and fever.She could.ve injure the leg, in retrospect, but she denies seeing any skin cuts or wounds. Discharge Providers Provider Date of admission: 02/03/23 21:10 Discharge Date: 02/07/23 Primary care physician: Rock Lucio MD Discharge provider: Nick Mccall DO Summary Hospital Course Discharge Diagnosis: 1. LLE Acute Cellulitis 2. Hypothyroidism 3. Thrombocytopenia, likely related to infectious process, continue to follow. 4. Hyponatremia, mild, resolved Hospital Course: This is a 77 year old female with PMH of hypothyroidism, admitted with a LLE cellulitis and difficulty ambulating due to pain. She was started on ceftriaxone and vancomycin initially, with vancomycin stopped with negative MRSA swab and a non-purulent cellulitis. Ultrasound was performed and was negative for DVT. Patient had thrombocytopenia due to infection that improved with treatments. She was slow to improve but on the day of discharge had improved erythema, warmth and pain and was ambulating without difficulty. She was discharged with another 10 days of cephalexin for cellulitis. Recommend follow up with PCP or [facility] in 1-2 weeks to recheck symptoms while nearing completion of antibiotic therapy. Time Spent with Patient Time spent: Greater than 30 minutes Exam Vital Signs (past 8 hours): - 02/07/23 08:50 Temperature 96.2 F L Pulse Rate 62 Respiratory Rate 17 Blood Pressure 111/38 L Pulse Oximetry 98 Oxygen Flow Rate 0 Oxygen Delivery Method Room Air Oxygen Flow Rate 0 Narrative Exam Narrative: Gen: No acute distress Ext: mild L leg edema, minimal warmth and tenderness with improving erythema. CV: RRR, peripheral pulses +2 (DP) in b/l LE. PULM: no respiratory distress. Objective Labs 02/07/23 05:06 02/07/23 05:06 Labs: Laboratory Results - last 24 hr 02/07/23 02/07/23 05:06 05:06 WBC 8.2 RBC 3.75 L Hgb 11.5 L Hct 32.5 L MCV 86.7 MCH 30.7 MCHC 35.4 RDW 13.0 Plt Count 196 Neut % (Auto) 58.9 Lymph % (Auto) 28.9 [place] % (Auto) 7.5 Eos % (Auto) 4.2 H Baso % (Auto) 0.5 Neut # (Auto) 4800 Lymph # (Auto) 2400 [place] # (Auto) 600 Eos # (Auto) 300 Baso # (Auto) 0 Sodium 136 L Potassium 4.1 Chloride 105 Carbon Dioxide 27 BUN 16 Creatinine 0.69 Estimated GFR > 60 BUN/Creatinine Ratio 23.2 H Glucose 100 Calcium 8.3 L Magnesium 2.0 PFSH Medical History (Updated 02/04/23 @ 12:44 by Jennifer Shafer) Hypothyroidism Social History (System 02/04/23 @ 12:44 by Jennifer Shafer) household members: none Smoking Status: Former smoker Discharge Plan Discharge Plan Patient Disposition: Home Provider Discharge Comment: You were admitted to the hospital with a left leg cellulitis. This improved with antibiotics. Please complete therapy at home. Follow up with your primary care doctor or [facility] towards the end of completion of your antibiotics (end of next week). Discharge orders & Medications Prescriptions: New acetaminophen 325 mg Tablet 650 mg PO Q6H PRN (Reason: Fever/Mild Pain (1-3)) 30 Days Qty: 90 0RF cephalexin 500 mg tablet 500 mg PO QID 10 Days Qty: 40 0RF oxycodone 5 mg tablet 5 mg PO TID PRN (Reason: pain) 7 Days Qty: 6 0RF Continued levothyroxine [Synthroid] 50 mcg tablet 50 mcg PO DAILY estradiol 10 mcg tablet 10 mcg vaginal 2XW latanoprost 0.005 % drops 1 drp EYE-BOTH QPM Follow up/Referrals: Rock Lucio MD [Primary Care Provider] - Diet/Activity/Treatments Diet: Diet as Tolerated and Regular Activity: As tolerated no restrictions Visit Report/Discharge Packet Instructions: Oxycodone, Cephalexin Stand Alone Forms: Patient Portal/API, Stroke Signs & Symptoms Discharge Data Primary Care Provider: Rock Lucio Discharges patient from system. Discharge Date/Time: 02/07/23 11:27 Quality VTE Deep Vein Thrombosis/Pulmonary Embolism Present on Admission: No
[2023-02-07] MEDS: ENOXAPARIN 40 MG/0.4 ML SYRINGE SUBCUT (09:37)
--- NOTE | 2023-02-07 09:47 | PC.NURSE ---
Patient is anxious to leave today. She will call the taxi today to have herself picked up [place] and [place] to [place]. This RN will help get this arranged. Patient is ambulating in her room. Her leg is red within the outline provided on her leg when cellullitis appeared. Skin temp the same of both extremities. Patient will be given tylenol in about an hour for some discomfort to leg.
== END 2023-02-07 11:27 | disposition home or self-care (01) | DRG 603 ==
LOC: ED 20:35 → AC 02-04 08:08
PROVIDERS: Emergency Medicine; Internal Medicine; Admitting Provider Internal Medicine; Emergency Provider Emergency Medicine; PCP Emergency Medicine; Referring Provider Emergency Medicine; Visit Provider Internal Medicine
DX: L03.116 Cellulitis of left lower limb (principal); N17.9 Acute kidney failure, unspecified; E87.1 Hypo-osmolality and hyponatremia; E03.9 Hypothyroidism, unspecified; D69.6 Thrombocytopenia, unspecified; H40.9 Unspecified glaucoma; Z78.0 Asymptomatic menopausal state; Z87.891 Personal history of nicotine dependence
CPT/HCPCS: 36415; 71045; 80048; 80053; 81003; 81015; 83605; 83690; 83735; 84145; 85025; 85610; 85730; 87040; 87086; 87797; 93005; 93010; 93971; 96365; 96375; 99284; 99285; J0696; J1650; J1885; J2405